=== PATIENT | male | born 1980 | race Two or more races ===

== ENCOUNTER → 2024-03-03 | Outpatient (CLI) | payer OTHER, SELFPAY ==
--- NOTE | 2024-03-03 16:00 | XR_ITS ---
Examination: CT maxillofacial, without intravenous contrast. 2-D sagittal reconstructions. 3-D reconstructions. Date and time of exam:March 03, 2024 1620 hours INDICATIONS: Nasal congestion sinus pressure and pain beginning June 2023 CTDI: vol (mGy):7.85 DLP: (mGycm):119 Technique: Multiple axial images of maxillofacial region, 3.0 mm slice thickness. 2-D sagittal and coronal reconstructions. 3-D reconstructions. Low dose protocols were performed. One or more of the following dose reduction techniques were used; automated exposure control, adjustment of the mA and/or KV according to patient size, use of iterative reconstruction technique. Findings: Mild mucosal thickening in the ethmoid air cells Occlusion of the ostiomeatal complexes secondary to maxillary mucosal disease, mucosal disease in inferior left maxillary antrum measures up to 10 mm Axial image 44 demonstrates fluid level in the left maxillary antrum Mucosal thickening along the nasal septum No fluid levels No retention cysts Symmetrical mastoid aeration Negative for otitis media, negative for acute mastoiditis. Mildly prominent nasopharyngeal soft tissue sagittal image 66 Visualized ventricles are not enlarged IMPRESSION: Sinus disease as above, including acute left maxillary antral sinusitis
== END | disposition home or self-care (01) ==
PROVIDERS: PCP Otolaryngology; Referring Provider Otolaryngology; Visit Provider Otolaryngology
DX: J32.8 Other chronic sinusitis (principal)
CPT/HCPCS: 70486

== ENCOUNTER 2024-09-16 11:20 | Day surgery (SDC) | payer OTHER, SELFPAY ==
--- NOTE | 2024-09-15 07:00 | EKG_ITS ---
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
[2024-09-15 07:26] VITALS: BMI 34.4
[2024-09-16] VITALS (7 sets, daily range): BP systolic 120–166; BP diastolic 80–96; PULSE 84–94; RESP 12–20; TEMP 36.4–36.8; O2SAT 93–97; BMI 33.7
[2024-09-16] MEDS: RINGERS LACTATED 1000 ML 1,000 ML 20 ML IV (11:51)
[2024-09-16] MEDS: OXYMETAZOLINE NAS SPRY 0.05% 15 ML BTL NASAL (11:51)
--- NOTE | 2024-09-16 12:45 | PD.SUROPNT ---
Date of Procedure 09/16/24 Pre Op Diagnosis Nasal septal deviation with obstruction Left inferior turbinate hypertrophy Post Op Diagnosis Nasal septal deviation with obstruction Bilateral inferior turbinate hypertrophy Procedure Intranasal septoplasty Bilateral submucous resection of the inferior turbinates Findings Nasal septal deviation to the right side with spurring to the left. There was enlargement of both inferior turbinates. Procedure Description Indications: This is a 43-year-old male with chronic nasal congestion with the above findings. Treatment options were discussed as well as surgical risks including bleeding infection and nasal deformity and potential need for further surgery. He understood this as well as anticipated outcomes and wished to proceed. Patient was transferred to the operative suite where he was anesthetized and intubated. Timeout was performed. Patient was sterilely draped. Nasal septum as well as the inferior turbinates were injected with 1% lidocaine with 1 100,000 dilution epinephrine. A caudal rim incision was made on the left side of the septum mucosal flap elevated off the septal cartilage and bone and inferior tunnel created. Perpendicular plate was from the quadrangular cartilage with a freer elevator and a mucosal flap elevated off of that side. Deviated perpendicular plate was incised with a double-action scissors and bony fragments removed with Erika forceps. There was some's cartilaginous spurring to the left and this was removed with a caudal elevator. This allowed the septum to return near midline. The mucosal flaps were reapproximated to the underlying cartilage with a 4-0 plain gut suture in a quilting type stitch. This was used to close the rim incision as well. The inferior turbinates are approximately the same size so elected to go ahead and proceed with submucous resection bilaterally. This is first done on the left side in submucosal plane and a 2.9 mm turbinate shaver blade was inserted. Dissection was performed on insertion and withdrawal. Similar procedure was then performed on the right side. Entry sites were cauterized with suction cautery. Patient was awakened and taken the recovery room in stable condition Anesthesia GETA Pathology / specimen None Estimated Blood Loss 5 Surgeon Reggie Cleveland DO Surgical Staff Operation Date: 09/16/24 13:30 Case Staff Anesthesiologist: Carlos Cummins
--- NOTE | 2024-09-16 12:56 | SUR.PHASEI ---
1256: Pt. AAOx4, vitals stable, breathing unlabored, no complaint of pain or nausea, dressing beneath nose has scant amount of blood, report received from Obinna GANNON and MD Cummins.
--- NOTE | 2024-09-16 13:56 | SUR.PHASEII ---
1356: Pt. AAOx4, vitals stable, breathing unlabored, no complaint of pain or nausea, dressing below nose has scant amount of blood, pt. tolerated sips of water well, pt. ambulated to wheelchair with steady gait and no assist, no complications. Gave discharge instructions to the pt. and his ride, both verbalized understanding and had no further questions. Pt. left with all personal belongings.
== END 2024-09-16 13:56 | disposition home or self-care (01) ==
PROVIDERS: PCP Family Medicine; Referring Provider Otolaryngology; Visit Provider Otolaryngology
PROC: (CPT 30520; principal; 2024-09-16 13:15)
DX: J34.2 Deviated nasal septum (principal); J34.3 Hypertrophy of nasal turbinates; Z01.810 Encounter for preprocedural cardiovascular examination
CPT/HCPCS: 30520; 30140; 93005; A4217; A4649; J0690; J1100; J1885; J2250; J2371; J2405; J2704; J3010; J3490; J7040; J7120; A9270